=== PATIENT | male | born 1985 | race Caucasian/White ===

== ENCOUNTER 2023-12-09 11:06 | Emergency (ER) | payer OTHER ==
[2023-12-09 11:29] VITALS: BP 121/74; PULSE 93; RESP 16; TEMP 98.4; BMI 29.0
== END 2023-12-09 13:22 | disposition home or self-care (01) ==
LOC: EDBD → FER 11:06
DX: S99.912A Unspecified injury of left ankle, initial encounter (principal); W22.8XXA Striking against or struck by other objects, initial encounter; Y99.0 Civilian activity done for income or pay
CPT/HCPCS: 73562-TC-LT-FY; 73590-TC-LT-FY; 73610-TC-LT-FY; 73630-TC-LT; 99284-25